=== PATIENT | female | born 1960 | race Caucasian/White ===

== ENCOUNTER 2018-06-24 12:22 | Emergency (ER) | payer BC ==
[2018-06-24] MEDS ORDERED: Bacitracin Oint 1 GM U/D Packet TOP ONE (12:35)
--- NOTE | 2018-06-24 12:51 | EDM.PDOC ---
ED HPI GENERAL MEDICAL PROBLEM - General Chief Complaint: Skin Complaint Stated Complaint: FISH HOOK LT POINTER FINGER Time Seen by Provider: 06/24/18 12:35 Source of Information: Reports: Patient History Limitations: Reports: No Limitations - History of Present Illness INITIAL COMMENTS - FREE TEXT/NARRATIVE: 57-year-old female with a fish hook in her left index finger. Onset: Sudden Duration: Hour(s): (Within the last 2 hours) Location: Reports: Upper Extremity, Left - Related Data Allergies Allergy/AdvReac Type Severity Reaction Status Date / Time No Known Allergies Allergy Verified 06/24/18 12:31 Home Meds: Home Meds Lisinopril 06/24/18 [History] Past Medical History Cardiovascular History: Reports: Hypertension - Past Surgical History HEENT Surgical History: Reports: Tonsillectomy Social & Family History - Tobacco Use Smoking Status *Q: Never Smoker ED ROS GENERAL - Review of Systems Review Of Systems: See Below Constitutional: Denies: Fever Respiratory: Denies: Shortness of Breath GI/Abdominal: Denies: Nausea, Vomiting Psychiatric: Reports: Anxiety ED EXAM, SKIN/RASH Exam: See Below Exam Limited By: No Limitations General Appearance: Alert, No Apparent Distress, Anxious Respiratory/Chest: No Respiratory Distress Extremities: Other (Exam is otherwise limited to the left hand. There is one johnathan of a treble hook embedded into the dorsal aspect of the left index finger) Course - Vital Signs Last Recorded V/S: Last Vital Signs Temp 98.2 F 06/24/18 12:36 Pulse 72 06/24/18 12:36 Resp 14 06/24/18 12:36 BP 169/95 H 06/24/18 12:36 Pulse Ox 98 06/24/18 12:36 - Orders/Labs/Meds Meds: Medications Discontinued Medications Generic Name Dose Route Start Last Admin Trade Name Freq PRN Reason Stop Dose Admin Bacitracin 1 dose 06/24/18 12:35 06/24/18 12:49 Bacitracin Oint 1 Gm TOP 06/24/18 12:36 1 dose ONETIME ONE Administration Lidocaine HCl 5 ml 06/24/18 12:35 06/24/18 12:49 Xylocaine-Mpf 1% INJECT 06/24/18 12:36 5 ml ONETIME ONE Administration - Re-Assessments/Exams Free Text/Narrative Re-Assessment/Exam: 06/24/18 12:50 The area was infiltrated with 1% lidocaine, and the hook removed with a needle diaz. Topical bacitracin and a Band-Aid was applied. Patient will keep the wound covered and clean while healing. Departure - Departure Time of Disposition: 12:56 Disposition: Home, Self-Care 01 Condition: Good Clinical Impression: Brunson injury to finger Qualifiers: Encounter type: initial encounter Laterality: left Qualified Code(s): S69.92XA - Unspecified injury of left wrist, hand and finger(s), initial encounter - Discharge Information Instructions: Puncture Wound, [id number] Referrals: PCP,None [Primary Care Provider] - Forms: ED Department Discharge Care Plan Goals: Keep wound clean and covered while healing. Recheck if concerns of infection or not healing satisfactorily.
== END 2018-06-24 12:56 | disposition home or self-care (01) ==
LOC: JP.ED 12:22
DX: S60.451A Superficial foreign body of left index finger, initial encounter (principal); W45.8XXA Other foreign body or object entering through skin, initial encounter; I10 Essential (primary) hypertension
CPT/HCPCS: 99283